=== PATIENT | female | born 1965 | race Caucasian/White ===

== ENCOUNTER 2021-06-30 11:52 | Emergency (ER) | payer BC ==
[2021-07-01 08:37] LABS: SARS-CoV-2 PCR by NAA DETECTED (NotDetected)
== END 2021-06-30 15:21 | disposition home or self-care (01) ==
LOC: CSHERS 11:52
DX: U07.1 COVID-19 (principal); F17.200 Nicotine dependence, unspecified, uncomplicated
CPT/HCPCS: 87804; 99283; U0003; U0005

== ENCOUNTER 2023-02-28 13:48 | Emergency (ER) | payer BC, SELFPAY | END 2023-02-28 15:10 | disposition home or self-care (01) | LOC: CSHERS 13:48 | DX: S20.211A Contusion of right front wall of thorax, initial encounter (principal); F17.210 Nicotine dependence, cigarettes, uncomplicated; W19.XXXA Unspecified fall, initial encounter | CPT/HCPCS: 71046 ==

== ENCOUNTER 2023-12-26 16:07 | Emergency (ER) | payer OTHER, SELFPAY | END 2023-12-26 16:53 | disposition home or self-care (01) | LOC: CSHERS 16:07 | DX: T78.40XA Allergy, unspecified, initial encounter (principal); F17.210 Nicotine dependence, cigarettes, uncomplicated | CPT/HCPCS: 99282 ==